=== PATIENT | female | born 1975 | race Hispanic/Latino ===

== ENCOUNTER 2021-08-17 09:02 | Emergency (ER) | payer OTHER ==
[~2021-08-17] VITALS: Ht 154.9 cm; Wt 56.7 kg
[2021-08-17] MEDS ORDERED: ONDA4TAB4 PO (14:25)
[2021-08-17] MEDS ORDERED: D-ME118S47 PO (14:25)
[2021-08-17] MEDS ORDERED: IBUP-2070 PO (14:25)
[2021-08-17 14:32] VITALS: BP 122/70
== END 2021-08-17 14:35 | disposition home or self-care (01) ==
LOC: EDH 09:02
DX: U07.1 COVID-19 (principal); I10 Essential (primary) hypertension; Z88.1 Allergy status to other antibiotic agents; Z98.84 Bariatric surgery status
CPT/HCPCS: 87635; 99283; C9803